=== PATIENT | female | born 1935 | race Two or more races ===

== ENCOUNTER → 2021-04-26 | Emergency (ER) | payer SELFPAY ==
[~2021-04-26] VITALS: Ht 152.4 cm; Wt 74.8 kg
[~2021-04-26] MED LIST: ONDA4TAB11 PO; PANT20TA2 PO; PANTOPRAZOLE 40 MG VIAL ONE
--- NOTE | 2021-04-26 18:40 | NUR ---
TO ER BED 1, C/O THROWING UP DARK COLORED LIQUIDS, FAMILY MEMBER SAID THAT PT WILL HAVE UPPER ABDOMEN PAIN BEFORE THROWING UP THEN WILL BE RELIEVED AFTER THROWING UP. AT BEDSIDE
--- NOTE | 2021-04-26 18:42 | NUR ---
SALINE LOCK ESTABLISHED, ATTACHED TO MONITOR AND PULSE OX
[2021-04-26] MEDS: PANTOPRAZOLE 40 MG VIAL IV ONE (18:52)
--- NOTE | 2021-04-26 18:53 | NUR ---
FAMILY AT BEDSIDE
[2021-04-26 19:06] LABS: BASOPHILS # (AUTO) 0.1 K/uL (0.0-0.2); BASOPHILS % (AUTO) 0.5 % (0.0-2.0); EOSINOPHILS % (AUTO) 0.1 % (0.0-6.0); HEMATOCRIT 43 % (33-45); LYMPHOCYTES # (AUTO) 0.8 K/uL (0.8-4.8); LYMPHOCYTES % (AUTO) 6.8 % (20.0-44.0); MEAN CORPUSCULAR HGB CONC 32 g/dl (31.0-36.0); MEAN CORPUSCULAR VOLUME 90 fL (82-100); MONOCYTES # (AUTO) 0.2 K/uL (0.1-1.30); MONOCYTES % (AUTO) 1.6 % (2.0-12.0); NEUTROPHILS # (AUTO) 10.7 K/uL (1.8-8.9); PLATELET COUNT (AUTO) 200 K/uL (150-450); WHITE BLOOD COUNT (AUTO) 11.8 K/uL (4.3-11.0)
--- NOTE | 2021-04-26 19:20 | NUR ---
GAVE REPORT TO NOC RN
[2021-04-26 19:21] LABS: ALANINE AMINOTRANSFERASE 26 U/L (12-78); ALBUMIN 3.4 g/dL (3.4-5.0); ALKALINE PHOSPHATASE 63 U/L (46-116); ASPARTATE AMINOTRANSFERASE 18 U/L (15-37); BILIRUBIN,DIRECT 0.1 mg/dL (0.0-0.2); BILIRUBIN,TOTAL 0.4 mg/dL (0.2-1.0); CALCIUM, SERUM 9.4 mg/dL (8.5-10.1); CARBON DIOXIDE 22 mmol/L (21-32); CHLORIDE 105 mmol/L (98-107); CREATININE 1.4 mg/dL (0.6-1.3); GLUCOSE 275 mg/dL (74-106); LIPASE 109 U/L (73-393); POTASSIUM 4.3 mmol/L (3.5-5.1); SODIUM SERUM 141 mmol/L (136-145); TOTAL PROTEIN, SERUM 7.4 g/dL (6.4-8.2); UREA NITROGEN, BLOOD 29 mg/dL (7-18)
--- NOTE | 2021-04-26 19:29 | NUR ---
PATIENT TAKEN TO CT
[2021-04-26 20:14] VITALS: BP 136/75
--- NOTE | 2021-04-26 20:14 | NUR ---
Patient discharged to home in stable condition. RX and Written and verbal after care instructions given. Patient verbalizes understanding of instruction.
== END | disposition home or self-care (01) ==
LOC: ER 18:26
DX: K44.9 Diaphragmatic hernia without obstruction or gangrene (principal); K92.0 Hematemesis; I10 Essential (primary) hypertension
CPT/HCPCS: 36415; 74176; 80048; 80076; 83690; 84484; 85025; 85730; 86850; 93005; 96374; 99291; C9113

== ENCOUNTER 2023-05-04 21:11 | Emergency (ER) | payer MEDICAID ==
[~2023-05-04] VITALS: Ht 152.4 cm; Wt 72.1 kg
[~2023-05-04 21:11] MED LIST changes: -PANTOPRAZOLE 40 MG VIAL ONE
[2023-05-04 21:57] VITALS: TEMP 99.7
--- NOTE | 2023-05-04 22:00 | NUR ---
BIB FAMILY FOR BLACK VOMITING SINCE 12 NOON
--- NOTE | 2023-05-04 22:19 | NUR ---
LEFT AC 20G ESTABLISHED, CONVERTED TO SALINE LOCK
--- NOTE | 2023-05-04 22:31 | NUR ---
DR METZGER AT BEDSIDE
[2023-05-04] MEDS ORDERED: ONDANSETRON HCL/PF 4 MG/2 ML VIAL ONE (22:47)
[2023-05-04] MEDS ORDERED: PANTOPRAZOLE 40 MG VIAL ONE (22:47)
[2023-05-04 22:54] LABS: BASOPHILS % (AUTO) 0.3 % (0.0-2.0); HEMATOCRIT 44 % (33-45); HEMOGLOBIN 14.2 g/dL (11.5-14.8); LYMPHOCYTES # (AUTO) 0.7 K/uL (0.8-4.8); MEAN CORPUSCULAR HGB CONC 32 g/dl (31.0-36.0); MEAN CORPUSCULAR VOLUME 87 fL (82-100); MONOCYTES # (AUTO) 0.2 K/uL (0.1-1.30); MONOCYTES % (AUTO) 1.7 % (2.0-12.0); NEUTROPHILS # (AUTO) 11.3 K/uL (1.8-8.9); PLATELET COUNT (AUTO) 188 K/uL (150-450); RED BLOOD CELL COUNT(AUTO) 5.03 MIL/uL (4.0-5.2); WHITE BLOOD COUNT (AUTO) 12.3 K/uL (4.3-11.0)
[2023-05-04] MEDS ORDERED: IV NS 0.9% 1,000 ML BAG IV ONE (23:00)
[2023-05-04] MEDS ORDERED: ONDANSETRON HCL/PF - ER 4 MG/2 ML VIAL IV ONE (23:00)
[2023-05-04] MEDS ORDERED: PANTOPRAZOLE 40 MG VIAL IV ONE (23:00)
[2023-05-04 23:23] LABS: ALANINE AMINOTRANSFERASE 36 U/L (12-78); ALBUMIN 3.9 g/dL (3.4-5.0); ALKALINE PHOSPHATASE 67 U/L (46-116); ASPARTATE AMINOTRANSFERASE 21 U/L (15-37); BILIRUBIN,DIRECT 0.1 mg/dL (0.0-0.2); BILIRUBIN,TOTAL 0.9 mg/dL (0.2-1.0); CALCIUM, SERUM 10.6 mg/dL (8.5-10.1); CARBON DIOXIDE 22 mmol/L (21-32); CHLORIDE 108 mmol/L (98-107); CREATININE 1.3 mg/dL (0.6-1.3); GLUCOSE 230 mg/dL (74-106); LIPASE 75 U/L (73-393); POTASSIUM 4.3 mmol/L (3.5-5.1); SODIUM SERUM 145 mmol/L (136-145); TOTAL PROTEIN, SERUM 8.2 g/dL (6.4-8.2); UREA NITROGEN, BLOOD 40 mg/dL (7-18)
[2023-05-04] MEDS ORDERED: CT SWABBABLE VALVE TRANS SET 1 EA INFUS.SET MC ONE (23:30)
[2023-05-04] MEDS ORDERED: IV NS 0.9% 250 ML IV ONE (23:30)
[2023-05-04] MEDS ORDERED: IOHEXOL-350 100 ML VIAL IV ONE (23:30)
--- NOTE | 2023-05-05 00:25 | NUR ---
PT TAKEN TO CT VIA SHARON
--- NOTE | 2023-05-05 00:31 | NUR ---
PATIENT RETUNED TO ROOM VIA SHARON
[2023-05-05] MEDS ORDERED: LISINOPRIL (20MG) 20 MG TABLET PO STA (01:12)
[2023-05-05] MEDS ORDERED: LISINOPRIL (20MG) 20 MG TABLET ONE (01:18)
[2023-05-05 02:01] VITALS: BP 181/101; O2SAT 93
[2023-05-05] MEDS ORDERED: MELO-107 PO (02:31)
[2023-05-05] MEDS ORDERED: LISI20TA30 PO (02:31)
--- NOTE | 2023-05-05 02:54 | NUR ---
PATIENT REQUESTED TO LEAVE AMA. WAIVER SIGNED. AWARE
[2023-05-05] MEDS ORDERED: ONDA4TAB11 PO (02:56)
[2023-05-05] MEDS ORDERED: OMEP20CA15 PO (02:56)
== END 2023-05-05 03:16 | disposition home or self-care (01) ==
LOC: ER 21:15
DX: K44.9 Diaphragmatic hernia without obstruction or gangrene (principal); R10.13 Epigastric pain; K92.0 Hematemesis; I10 Essential (primary) hypertension
CPT/HCPCS: 99285; 74177; 96374; 71045; 96361; 96375; 93005; 85025; 80048; 83690; 80076; 36415; 84484; 85730; 86850; J2405; J7030; J7050; C9113; Q9967